=== PATIENT | male | born 1940 | race Caucasian/White ===

== ENCOUNTER 2019-07-27 05:15 | Inpatient (IN) ==
[2019-07-27] MEDS ORDERED: DUONEB (A & A) INH ONE (05:57)
[2019-07-27 06:34] LABS: URINE SOURCE CLEAN CATCH
--- NOTE | 2019-07-27 06:56 | PROVIDER DOCUMENTATION ---
This chart was entered by Jacque Peñaloza Scribe, acting as scribe for Justus Mederos DO. HPI-General Adult - General Source: patient, family (daughter) - History of Present Illness -Gen Adult Nature of Presenting Problems: 79yom presents to ED cc cough, nausea, weakness, body aches, diarrhea, frequent urination for last 2 days, right side rib tenderness and SOB since falling on Thanksgiving but hasn't seen a dr in over 30yrs. Daughter is at bedside and r eports after pt fell he just started wrapping his ribs for last 8 weeks. Pt is tearful upon exam. Location of Pain/Injury: reports: upper body (right side ribs), generalized Quality of Pain: reports: aching Severity: reports: moderate Onset/Duration: reports: 2 days ago, other (rib pain since Thanksgiving) Timing: reports: still present Context/Activities at Onset: reports: light activity Modifying Factors: worse with: breathing, coughing, movement Associated Symptoms: reports: cough, diarrhea, fatigue, fever/chills (chills), genitourinary problems (frequency), shortness of breath, weakness Similar Symptoms Previously?: No Recently seen or treated by another doctor?: No <Justus Mederos - Last Filed: 07/27/19 06:55> <Reese Luna - Last Filed: 07/27/19 10:13> - General Chief Complaint: Shortness of Breath Stated Complaint: WEAK/FLU SX Time Seen by Provider: 07/27/19 06:01 Allergies/Adverse Reactions: Patient Allergies Allergy/AdvReac Type Severity Reaction Status Date / Time No Known Allergies Allergy Verified 07/27/19 06:30 Home Medications: Home Medication List Medication Instructions Recorded Confirmed Last Taken Type NK [No Home Medications] 07/27/19 07/27/19 Unknown History Review of Systems - Adult - REVIEW OF SYSTEMS - ADULT Constitutional: reports: see HPI, chillsiris. denies: fever Eyes: reports: no symptoms reported Ears, Nose, Mouth & Throat: reports: no symptoms reported Cardiovascular: reports: no symptoms reported Respiratory: reports: see HPI, cough, shortness of breath, wheezing Gastrointestinal: reports: see HPI, diarrhea, nausea. denies: abdominal pain, vomiting Genitourinary: reports: see HPI, frequency. denies: dysuria, hematuria Musculoskeletal: reports: see HPI, other (right side rib tenderness) Integumentary: reports: no symptoms reported Neurological: reports: no symptoms reported Psychiatric: reports: no symptoms reported Endocrine: reports: no symptoms reported Hematologic/Lymphatic: reports: no symptoms reported Allergic/Immunologic: reports: no symptoms reported All Other Systems: Reviewed and Negative <Justus Mederos - Last Filed: 07/27/19 06:55> Past History - Adult - PAST MEDICAL HISTORY-ADULT Review of Records: reports: Nursing Assessment Review, Medications Reviewed, Social history reviewed & non-contributory. Major Childhood Illnesses: reports: denies history Cardiovascular: reports: denies history Respiratory: reports: denies history Gastrointestinal: reports: denies history Obstetrical/Gynecological: reports: denies history Genitourinary: reports: denies history Musculoskeletal: reports: denies history Neurological: reports: denies history Endocrine/Immune: reports: denies history Other Conditions: reports: denies history - IMMUNIZATION STATUS Childhood Immunizations: See Nurse Assessment Flu Vaccine: See Nurse Assessment - FAMILY HISTORY Family History: reviewed, not pertinent - SOCIAL HISTORY Smoking: denies <Justus Mederos - Last Filed: 07/27/19 06:55> Physical Exam-General - PHYSICAL EXAM-ADULT Initial Vital Signs Reviewed: Yes - CONSTITUTIONAL General Appearance: appears well, alert. negative: anxious, combative - EYES Eyes: PERRL/EOMI, pink conjunctivae. negative: photophobia - HEAD, EARS, NOSE, MOUTH & THROAT HENMT: normocephalic/atraumatic, moist mucous membranes, dental decay (periodontal disease throughout), TM obscurred by cerumen (bilateral). negative: angioedema - NECK Neck: supple, normal inspection - RESPIRATORY Respiratory: no respiratory distress, no accessory muscle use, decreased breath sounds, rales (right lower), wheezing (expiratory, diffuse throughout). negative: crackles, rhonchi, stridor - CARDIOVASCULAR Cardiovascular: normal peripheral pulses, no gallop, no JVD, no murmur, tachycardia. negative: bradycardia - GASTROINTESTINAL (ABDOMEN) Abdominal Exam: normal bowel sounds, non tender, soft, no organomegaly, no pulsatile mass. negative: distended, guarding, rigid, rebound - LYMPHATIC Lymphatic: no adenopathy. negative: enlargement - MUSCULOSKELETAL Back Exam: no CVA tenderness, no vertebral tenderness, other (DJD, thoracic and lumbar). negative: kyphosis Extremity: normal range of motion, normal capillary refill, swelling (pretibial, mild; calves are symetrical). negative: deformity - SKIN Integumentary: normal color, normal turgor, warm/dry. negative: diaphoresis, jaundice, rash - PSYCHIATRIC Psych/Mental Status: normal mood/affect, oriented x 3, tearful. negative: anxious <Justus Mederos - Last Filed: 07/27/19 06:55> Progress - PLAN OF CARE/RESULTS Progress/Plan/Lab Results: Vital Signs - 8 hr 07/27/19 05:33 Temperature 98.1 F Pulse Rate 126 H Respiratory Rate 20 Blood Pressure 139/73 O2 Sat by Pulse Oximetry 90 L Laboratory Results - last 24 hr 07/27/19 05:39 POC Glucose 349 H Orders Category Date Time Status Finger Stick Blood Sugar (ED) DIRECTED Care 07/27/19 05:40 Active IV Insertion ORDERED Care 07/27/19 05:57 Active CHEST-2 VIEWS [RAD] Stat Exams 07/27/19 05:57 Ordered CBC WITH ELECTRONIC DIFF [HEME] Stat Lab 07/27/19 05:56 Uncollected COMPREHENSIVE METABOLIC PANEL [CHEM] Stat Lab 07/27/19 05:57 Uncollected PRO B-NATRIURETIC PEPTIDE Stat Lab 07/27/19 05:59 Uncollected TROPONIN T HIGH SENSITIVITY Stat Lab 07/27/19 05:59 Uncollected URINALYSIS W/POSS RFLX CULT [URINALYSIS] Stat Lab 07/27/19 05:57 Uncollected Albuterol 2.5MG/Ipratrop 0.5MG [Duoneb (A & A)] Med 07/27/19 05:57 Discontinued 3 ml INH NOW ONE Aerosol Treatments Routine Oth 07/27/19 05:58 Active Aerosol Treatments Stat Oth 07/27/19 05:58 Active EKG [EKG] Stat Ther 07/27/19 05:40 Ordered Result Diagrams: 07/27/19 06:05 - EKG 1 Time of EKG reading by physician:: 06:08 EKG Read and Signed by:: Justus Mederos EKG Interpretation (*Must complete 3 of following elements*): Abnormal (possible inferior infarct, age undetermined) Rate: 123 Rhythm: Sinus Tachy QRS: normal DE Interval: normal <Justus Mederos - Last Filed: 07/27/19 06:55> - PLAN OF CARE/RESULTS Progress/Plan/Lab Results: Vital Signs - 8 hr 07/27/19 05:33 07/27/19 06:40 07/27/19 07:26 Temperature 98.1 F Pulse Rate 126 H 115 H 122 H Respiratory Rate 20 22 Blood Pressure 139/73 148/86 O2 Sat by Pulse Oximetry 90 L 92 L 93 L 07/27/19 08:16 Temperature 98.8 F Pulse Rate 122 H Respiratory Rate 20 Blood Pressure 138/77 O2 Sat by Pulse Oximetry 95 07/27/19 06:05 Influenza Screen - Final Nasopharyngeal Laboratory Results - last 24 hr 07/27/19 07/27/19 07/27/19 05:39 06:05 06:05 WBC 6.95 RBC 4.86 Hgb 14.6 Hct 41.5 L MCV 85.4 MCH 30.0 MCHC 35.2 RDW Std Deviation 13.0 Plt Count 179 MPV 10.0 Neut % (Auto) 79.2 H Lymph % (Auto) 12.7 L [place] % (Auto) 6.3 Eos % (Auto) 1.7 Baso % (Auto) 0.1 Neut # (Auto) 5.50 Lymph # (Auto) 0.88 L [place] # (Auto) 0.44 Eos # (Auto) 0.12 Baso # (Auto) 0.01 PT INR PTT (Actin FS) Sodium 136 Potassium 4.3 Chloride 98 Carbon Dioxide 23 L Anion Gap 15 BUN 14 Creatinine 0.9 Estimated GFR/1.73 m2 > 60 BUN/Creatinine Ratio 16 Glucose 373 H POC Glucose 349 H Calculated Osmolality 288 Calcium 9.5 Total Bilirubin 0.54 AST 23 ALT 28 Alkaline Phosphatase 80 Creatine Kinase Troponin T High Sens Ezj-Y-Fjknlobwsve Pept Total Protein 6.8 Albumin 3.9 Globulin 2.9 Albumin/Globulin Ratio 1.3 Plasma Lactate Urine Source Urine Color Urine Turbidity Urine pH Ur Specific [place] Urine Protein Ur Glucose (Stick) Ur Ketones (Stick) Urine Blood Urine Nitrite Urine Bilirubin Urobilinogen Dipstick Urine Leukocytes Urine WBC (Auto) Urine RBC (Auto) U Epithel Cells (Auto) Urine Bacteria (Auto) 07/27/19 07/27/19 07/27/19 06:05 06:05 06:05 WBC RBC Hgb Hct MCV MCH MCHC RDW Std Deviation Plt Count MPV Neut % (Auto) Lymph % (Auto) [place] % (Auto) Eos % (Auto) Baso % (Auto) Neut # (Auto) Lymph # (Auto) [place] # (Auto) Eos # (Auto) Baso # (Auto) PT INR PTT (Actin FS) Sodium Potassium Chloride Carbon Dioxide Anion Gap BUN Creatinine Estimated GFR/1.73 m2 BUN/Creatinine Ratio Glucose POC Glucose Calculated Osmolality Calcium Total Bilirubin AST ALT Alkaline Phosphatase Creatine Kinase Troponin T High Sens 8 Lgy-K-Baakoyfrwed Pept 92 Total Protein Albumin Globulin Albumin/Globulin Ratio Plasma Lactate 1.7 Urine Source Urine Color Urine Turbidity Urine pH Ur Specific [place] Urine Protein Ur Glucose (Stick) Ur Ketones (Stick) Urine Blood Urine Nitrite Urine Bilirubin Urobilinogen Dipstick Urine Leukocytes Urine WBC (Auto) Urine RBC (Auto) U Epithel Cells (Auto) Urine Bacteria (Auto) 07/27/19 07/27/19 07/27/19 06:05 06:05 06:25 WBC RBC Hgb Hct MCV MCH MCHC RDW Std Deviation Plt Count MPV Neut % (Auto) Lymph % (Auto) [place] % (Auto) Eos % (Auto) Baso % (Auto) Neut # (Auto) Lymph # (Auto) [place] # (Auto) Eos # (Auto) Baso # (Auto) PT 13.8 INR 1.05 PTT (Actin FS) 29.4 Sodium Potassium Chloride Carbon Dioxide Anion Gap BUN Creatinine Estimated GFR/1.73 m2 BUN/Creatinine Ratio Glucose POC Glucose Calculated Osmolality Calcium Total Bilirubin AST ALT Alkaline Phosphatase Creatine Kinase 151 Troponin T High Sens Yhx-V-Dlucggbygng Pept Total Protein Albumin Globulin Albumin/Globulin Ratio Plasma Lactate Urine Source CLEAN CATCH Urine Color YELLOW Urine Turbidity CLEAR Urine pH 5.5 Ur Specific [place] 1.040 Urine Protein NEGATIVE Ur Glucose (Stick) >1000 A Ur Ketones (Stick) 20 A Urine Blood NEGATIVE Urine Nitrite NEGATIVE Urine Bilirubin NEGATIVE Urobilinogen Dipstick NORMAL Urine Leukocytes NEGATIVE Urine WBC (Auto) <10 Urine RBC (Auto) <10 U Epithel Cells (Auto) <10 Urine Bacteria (Auto) NEGATIVE Orders Category Date Time Status Cardiac Monitoring DIRECTED Care 07/27/19 08:30 Active Finger Stick Blood Sugar (ED) DIRECTED Care 07/27/19 05:40 Completed IV Insertion ORDERED Care 07/27/19 05:57 Completed IV Insertion ORDERED Care 07/27/19 08:30 Active Notify MD of + Sepsis Screen NOW Care 07/27/19 08:30 Active Notify Physician As Ordered Care 07/27/19 08:30 Active CHEST-2 VIEWS [RAD] Stat Exams 07/27/19 05:[address] ABDOMEN/PELVIS W/O CONTRAST [CT] Stat Exams 07/27/19 08:[address] ANGIOGRM PULMONARY ARTERIES [CT] Stat Exams 07/27/19 07:19 Completed RIBS ONLY RIGHT [RAD] Stat Exams 07/27/19 06:50 Completed BLOOD CULTURE [BLDCUL] Stat Lab 07/27/19 08:30 Uncollected CBC WITH ELECTRONIC DIFF [HEME] Stat Lab 07/27/19 06:05 Completed CK PROFILE [SP CHEM] Stat Lab 07/27/19 06:05 Completed COMPREHENSIVE METABOLIC PANEL [CHEM] Stat Lab 07/27/19 06:05 Completed Flu Swab [INFLUENZA SCREEN A/B] Stat Lab 07/27/19 06:05 Completed LACTATE, PLASMA [CHEM] Lab 07/27/19 09:00 Uncollected LACTATE, PLASMA [CHEM] Lab 07/27/19 12:00 Uncollected LACTATE, PLASMA [CHEM] Stat Lab 07/27/19 06:05 Completed PRO B-NATRIURETIC PEPTIDE Stat Lab 07/27/19 06:05 Completed PROTIME WITH INR [COAG] Stat Lab 07/27/19 06:05 Completed PTT [COAG] Stat Lab 07/27/19 06:05 Completed TROPONIN T HIGH SENSITIVITY Stat Lab 07/27/19 06:05 Completed URINALYSIS W/POSS RFLX CULT [URINALYSIS] Stat Lab 07/27/19 06:25 Completed Albuterol 2.5MG/Ipratrop 0.5MG [Duoneb (A & A)] Med 07/27/19 05:57 Discontinued 3 ml INH NOW ONE Insulin Human Regular [Humulin R] Med 07/27/19 08:31 Discontinued 10 unit IV NOW ONE Levaquin 500 mg/D5w IV Now Med 07/27/19 09:10 Ordered Levofloxacin 500 mg/D5w [Levaquin 500 mg/D5w] 500 mg in 100 ml IV NOW Aerosol Treatments Routine Oth 07/27/19 05:58 Completed Aerosol Treatments Stat Oth 07/27/19 05:58 Completed Oxygen Device Stat Oth 07/27/19 08:30 Active EKG [EKG] Stat Ther 07/27/19 05:40 Draft Result Diagrams: 07/27/19 06:05 07/27/19 06:05 - CONSULTS/PCP/HOSPITALIST Notification #1 *Consult/PCP/Hospitalist*: Siobhan for Hospitalist Time Discussed: 10:00 Consult Disposition: Will see in ED, Admit <Reese Luna - Last Filed: 07/27/19 10:13> Departure - Departure Date of Disposition Decision: 07/27/19 Certified Medical Emergency: Emergent - Critical Care Note This patient required my direct & personal management of CC.: No <Justus Mederos - Last Filed: 07/27/19 06:55> - Departure Time of Disposition Decision: 09:36 Certified Medical Emergency: Emergent - Critical Care Note This patient required my direct & personal management of CC.: No <Reese Luna - Last Filed: 07/27/19 10:13> - Departure DIAGNOSIS: Diabetes mellitus, Atypical pneumonia, Renal mass Disposition: ADMITTED INPATIENT 09 Condition: Fair Additional Instructions: ED Follow Up Instructions: You have been treated by a care provider in the Emergency Department. These instructions are being provided to you so you can have an understanding of how to care for yourself upon discharge. [facility], you are responsible for making arrangements for follow-up care by a physician of your choice. Take all prescribed medications as directed. Return to the Emergency Department immediately for any new or worsening symptoms. You may call the Physician Referral phone number at [phone] to obtain a list of Physicians who are taking new patients. Referrals and Follow-Ups: None,PCP [Primary Care Provider] - Attestation - Physician/ HOWARD Attestation Patient care was provided by Advanced Practice Provider:: No The physician spent face to face time with patient:: Yes Advanced Practice Provider documentation review:: Supervising physician onsite and consulted in the evaluation and care of this patient. The physician did have a face to face encounter with the patient. <Justus Mederos - Last Filed: 07/27/19 06:55> This chart was documented by the indicated scribe, (Jacque Peñaloza, Krystle) and accurately reflects the services I performed and decisions made by , Justus Mederos DO, as attested by the provider's signature.
[2019-07-27 06:59] LABS: AGAP 15; ALB/GLOB RATIO 1.3; ALBUMIN 3.9 g/dL (3.5-5.0); ALKALINE PHOSPHATASE 80 U/L (32-122); BUN 14 mg/dL (8-22); CALCIUM 9.5 mg/dL (8.8-10.2); CHLORIDE 98 mmol/L (98-107); COSMO 288; CREATININE 0.9 mg/dL (0.7-1.2); ESTIMATED GFR > 60; GLUCOSE 373 mg/dL (70-104); GOT 23 U/L (10-34); GPT 28 U/L (10-44); POTASSIUM 4.3 mmol/L (3.5-5.1); SODIUM 136 mmol/L (136-145); TCO2 23 mmol/L (25-35); TOTAL BILIRUBIN 0.54 mg/dL (0.20-1.00); TOTAL PROTEIN 6.8 g/dL (6.3-8.3)
[2019-07-27 07:00] LABS: BASO# 0.01 X1000 (0.0-0.2); BASO% 0.1 % (0.0-0.8); EOS# 0.12 X1000 (0.0-0.7); EOS% 1.7 % (0.0-10.0); HEMATOCRIT 41.5 % (42.0-52.0); HEMOGLOBIN 14.6 g/dL (14.0-18.0); LYMPH# 0.88 X1000 (1.2-3.4); LYMPH% 12.7 % (20.5-51.1); MCHC 35.2 g/dL (33-37); MCV 85.4 FL (81-99); MONO# 0.44 X1000 (0.11-0.59); MONO% 6.3 % (1.7-9.3); NEUT% 79.2 % (42.2-75.2); PLT 179 X1000 (130-400); RBC 4.86 XMIL (4.7-6.1); WBC 6.95 X1000 (4.8-10.8)
--- NOTE | 2019-07-27 07:02 | Diag Imaging Result Doc PS360 ---
EXAM: CHEST-2 VIEWS 07/27/2019 HISTORY: cough TECHNIQUE: PA and lateral chest COMMENT: There are no previous studies. The heart size and pulmonary vascularity are within normal limits. There is an apparent nipple shadow on the left. There are some granulomata in the left upper lobe. There is peribronchial thickening present in the left lower lobe. This may represent a mild bronchopneumonia. IMPRESSION: Minimal bronchopneumonia left lower lobe. Electronically signed by Victorino Caraballo 07/27/2019 7:00 AM
[2019-07-27 07:07] LABS: BILIRUBIN URINE NEGATIVE (NEGATIVE); BLOOD URINE NEGATIVE (NEGATIVE); COLOR YELLOW; GLUCOSE URINE >1000 mg/dL (NEGATIVE); KETONE URINE 20 mg/dL (NEGATIVE); LEUKOCYTES URINE NEGATIVE (NEGATIVE); NITRITE URINE NEGATIVE (NEGATIVE); PH URINE 5.5; PROTEIN URINE NEGATIVE (NEGATIVE); TURBIDITY URINE CLEAR (CLEAR); UROBILINOGEN URINE NORMAL (NORMAL)
[2019-07-27 07:09] LABS: UR EPITHELIAL CELLS <10 /HPF (<10); URINE BACTERIA NEGATIVE /HPF; URINE RBC <10 /HPF (<10); URINE WBC <10 /HPF (<10)
--- NOTE | 2019-07-27 07:24 | Diag Imaging Result Doc PS360 ---
EXAM: RIBS ONLY RIGHT 07/27/2019 HISTORY: rib pain TECHNIQUE: Right rib series 4 views COMMENT: There is no evidence of pneumothorax or pleural fluid collection. The ribs appear to be intact. There is some deformity of the distal sixth rib which is probably chronic. IMPRESSION: No evidence of acute bony abnormality. Electronically signed by Victorino Caraballo 07/27/2019 7:21 AM
--- NOTE | 2019-07-27 07:26 | EKG Report ---
Test Performed on : 07/27/2019 06:00:13 AM Test Reason : sob Blood Pressure : / mmHG Vent. Rate : 123 BPM Atrial Rate : 123 BPM P-R Int : 128 ms QRS Dur : 088 ms QT Int : 412 ms P-R-T Axes : 055 004 056 degrees QTc Int : 589 ms Sinus tachycardia. Possible Inferior infarct , age undetermined Abnormal ECG No previous ECGs available Unconfirmed Result
--- NOTE | 2019-07-27 08:21 | Diag Imaging Result Doc PS360 ---
CT ANGIOGRM PULMONARY ARTERIES - 07/27/2019 INDICATION: sob, rule out PTE TECHNIQUE: Axial CT images were obtained after administering intravenous contrast. Coronal MIP images were generated. COMPARISON: None FINDINGS: There is a large suspicious mass at the posterior surface of the right kidney. This measures 5.3 x 6.6 cm. This is round and exophytic. This enhances heterogeneously. This does not appear to invade the renal collecting system. This does extend all the way to the fascia. This mass is incompletely imaged. Small calcified gallstone in the gallbladder. No gallbladder distention or inflammation. Moderate fatty change of the liver. There is no pulmonary embolism. There is mild calcified coronary artery disease. Heart size is normal with no pericardial effusion. There is some reticulonodular infiltrate in the left lower lobe consistent with atypical pneumonia. No significant COPD. Airways are all clear. There are moderate degenerative changes of the spine. No acute or suspicious bony lesion. IMPRESSION: 1. Large right renal mass. Noncontrast abdomen pelvis CT is recommended to complete staging. 2. Atypical pneumonia in the left lower lobe. 3. Negative for pulmonary embolism. This exam was performed using automated exposure control, adjustment of mA or kV according to patient size, and/or use of iterative reconstruction technique Electronically signed by Frandy Jules 07/27/2019 8:19 AM
[2019-07-27] MEDS ORDERED: HUMULIN R IV ONE (08:31)
[2019-07-27 08:57] LABS: INR 1.05; PROTIME 13.8 Seconds (11.0-16.0)
[2019-07-27 08:58] LABS: PTT 29.4 Seconds (22.3-41.8)
[2019-07-27] MEDS ORDERED: LEVAQUIN 500 MG/D5W 500 MG/100 ML IVPB IV ONE (09:10)
--- NOTE | 2019-07-27 09:14 | Diag Imaging Result Doc PS360 ---
CT ABDOMEN/PELVIS W/O CONTRAST - 07/27/2019 INDICATION: mass, abdo pain COMPARISON: CT chest from earlier FINDINGS: The large left renal mass is completely imaged. This measures about 5.1 x 6.5 cm in AP and lateral dimensions maximally. This is at the posterior upper-mid pole of the right kidney. This does not appear to invade the renal sinus. There is moderate diffuse dilation of the right ureter. There may be a narrowing at the distalmost right ureter. The urinary bladder demonstrates moderate wall thickening, significant reticulation and diverticula formation consistent with chronic urinary bladder hypertension. The left kidney and ureter are normal. No adenopathy. No bowel obstruction or inflammation. Normal appendix. Gallstone in the gallbladder. There are moderate degenerative changes of the spine. No acute or suspicious bony lesion. IMPRESSION: 1. Large right renal mass compatible with a renal cell cancer. 2. There appears to be a moderate stricture at the distal most right ureter reducing ureteral dilation. 3. Chronic urinary bladder hypertension. 4. Small gallstone in the gallbladder. This exam was performed using automated exposure control, adjustment of mA or kV according to patient size, and/or use of iterative reconstruction technique Electronically signed by Frandy Jules 07/27/2019 9:11 AM
[2019-07-27] MEDS ORDERED: LOPRESSOR IV ONE (10:05)
[2019-07-27] MEDS ORDERED: NS 1,000 ML IV ONE (10:11)
[2019-07-27] MEDS ORDERED: ZOFRAN IV PRN (10:16)
[2019-07-27] MEDS ORDERED: TYLENOL PO PRN (10:16)
[2019-07-27 10:29] LABS: HEMOGLOBIN A1C 12.8 % (4.8-6.0)
[2019-07-27] MEDS: ZOSYN 3.375 GM in NS 50 ML IV SCH ×3 (10:30→22:41)
[2019-07-27 10:40] LABS: FREE T4 1.19 ng/dL (0.93-1.70); TSH 1.13 uIUmL (0.27-4.20)
[2019-07-27] MEDS: HUMULIN R SUBQ SCH ×3 (11:00→20:39)
[2019-07-27 11:07] LABS: UR AMPHETAMINES QUAL NONE DETECTED (NONE DETECT); UR BARBITUATES QUAL NONE DETECTED (NONE DETECT); UR BENZODIAZEPIN QUAL NONE DETECTED (NONE DETECT); UR CANNABINOIDS QUAL NONE DETECTED (NONE DETECT); UR COCAINE QUAL NONE DETECTED (NONE DETECT); UR METHADONE QUAL NONE DETECTED (NONE DETECT); UR OPIATES QUAL NONE DETECTED (NONE DETECT); UR OXYCODONE QUAL NONE DETECTED (NONE DETECT); UR PCP QUAL NONE DETECTED (NONE DETECT)
[2019-07-27] MEDS ORDERED: SOLU-MEDROL IV SCH (11:15)
--- NOTE | 2019-07-27 11:43 | HISTORY AND PHYSICAL ---
PRIMARY CARE PROVIDER: None. He has not been to a primary care provider in over 50 years. CHIEF COMPLAINT: Right-sided pain, nocturia, and shortness of breath with wheezing. HISTORY OF PRESENT ILLNESS: Mr. Devonte Norton is an 79-year-old, male with a medical history of constipation, anxiety, and insomnia. However, he only takes a stool softener as his only medication. Mr. Norton states that he has essentially felt well for all these years. He has not been to a doctor in over 50 years. He does have complaints of some leakage with urination. He has been dealing with some urinary frequency at night. He states that last Wednesday, he started cold symptoms, start taking Mucinex but around 3 o'clock this morning, developed shortness of breath and wheezing, along with some chills. Became very weak. He called his daughter who brought him here. Here, he is found to be newly diagnosed for hypertension, diabetes, left lower lobe pneumonia, and a right kidney mass that can be consistent with cancer. He has had a cough but has been nonproductive and what does come up is clear. He states he has had some weight loss but an unknown amount. He has not changed his diet. He said one meal a day for many years. He has only noticed that his belt is a little more loose. He denies fevers. The pain that he complains about in his right-sided area, he thought was rib pain. Apparently 2 weeks ago, he missed a step and fell, started having pain in that location. He has essentially had pain in that location ever since. It is a consistent pain. It is not pain with inspiration. X-ray reveals no rib fractures, so we are going to admit him for further treatment and evaluation. PAST MEDICAL HISTORY: 1. Constipation, on a stool softener. 2. Anxiety. States at age 17, he was denied by the [employer] secondary to the anxiety. However, he has not taken anything for anxiety for all these years. 3. Insomnia. SURGICAL HISTORY: None. SOCIAL HISTORY: Denies tobacco, alcohol, or illicit drug use. Lives alone. His daughter is at the bedside. 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 FAMILY HISTORY: Mother started having heart problems in her mid 50s. Father had a rare stomach cancer. ALLERGIES: No known drug allergies. HOME MEDICATIONS: 1. Senokot once a day. 2. Recently on Mucinex. Otherwise, no home medications. REVIEW OF SYSTEMS: Fourteen point review of systems are complete and all were negative except for those mentioned above in the HPI. PHYSICAL EXAMINATION: VITAL SIGNS: Temperature 98.8 degrees, heart rate 121, respiratory rate 16, blood pressure 139/91, O2 saturation 94% on room air. GENERAL: Mr. Devonte Norton is an 79-year-old, male. He is in no acute distress. He is able to answer questions appropriately. HEENT: Atraumatic, normocephalic. Pupils equal, round, reactive to light. Extraocular movements intact. Mucous membranes are moist. NECK: Trachea midline. CARDIOVASCULAR: S1, S2. Tachycardic rate and rhythm. No rubs, gallops, murmurs. No lower extremity edema. There are +2 dorsalis and radial pulses. Negative JVD or carotid bruits. PULMONARY: Anteriorly and posteriorly, there are expiratory wheezes noted throughout. No work of breathing noted. He is tolerating room air. GI: Soft, nontender, nondistended. Positive bowel sounds x4. EXTREMITIES: Moves all extremities equally. Full range of motion. NEUROLOGIC: A and O x3. Follows commands. Sensory is intact. SKIN: Warm, dry, intact. LABORATORY DATA: White blood cells 6000, hemoglobin 14, hematocrit 41, platelet count 179,000. INR is 1.05, PTT is 29.4. Sodium 136, potassium 4.3, BUN 14, creatinine 0.9, glucose 373, hemoglobin A1c is 12.8, calcium 9.5. Bilirubin 0.54, AST 23, ALT 28. CK 151, troponin 8. ProBNP 92. Albumin is 3.9. Triglycerides 106, total cholesterol 174, LDL 109, HDL 46. Lactate x2 is 1.7 and 1.8. TSH is 1.16, free T4 is 1.19. Urinalysis greater than 1000 glucose and 20 ketones. IMAGING: Chest x-ray, bronchopneumonia, left lower lobe. Rib x-ray, no fractures. Pulmonary arteriogram, large right renal mass, atypical pneumonia in the left lower lobe. Negative for pulmonary embolism. Abdominal and pelvic CT, large right renal mass compatible with a renal cell cancer. There appears to be a moderate stricture at the distalmost right ureter producing ureteral dilation, chronic urinary bladder hypertension, small gallstones in the gallbladder. There is no mention of the prostate in this report. EKG, sinus tachycardia, rate 123, QTc 589. ASSESSMENT/PLAN: 1. Left lower lobe bronchopneumonia. Started on Zosyn. He is wheezing so we will do some nebulizers, as needed oxygen. Currently, he is on room air. We will do Xopenex since he is so tachycardic. Lactate is currently normal. 2. Newly found right renal mass along with the right ureter having a moderate stricture and urinary bladder hypertension. We consulted Dr. Norman with urology for further treatment and evaluation. Urine studies ordered. 3. Newly diagnosed diabetes mellitus type 2, which is currently uncontrolled. Hemoglobin A1c is 12.8. His glucose was over 300 here and he has been started on a diabetic diet, patterned blood glucoses, and sliding scale insulin, with a nutritional consult. 4. Newly diagnosed hypertension and he has tachycardia. He is getting some intravenous fluids. We will give him one-time dose of intravenous metoprolol and start him on 12.5 twice a day. We will also get an echocardiogram. There are no signs of pulmonary edema or lower extremity edema. 5. Anxiety. The beta cheryl may help with this as he is so tachycardic but he has got a long history of anxiety; however, untreated, so we will add some as needed Xanax if he needs it while he is here as he has had several diagnoses. He either has a fear of going to a doctor or really truly has felt good over the last 50 years. 6. Insomnia. No medications for that. 7. Chronic constipation. He has takes a stool softener every day at home which has kept this controlled. 8. Deep venous thrombosis prophylaxis. We will do sequential compression devices for now. Dictated by SHARRI Weathers for Phil Linares MD cc: SHARRI Weathers MD
[2019-07-27] MEDS ORDERED: LOPRESSOR PO ONE (14:25)
[2019-07-27] MEDS ORDERED: HUMULIN R SUBQ ONE (14:29)
[2019-07-27] MEDS: XOPENEX NEB INH SCH ×2 (15:51→23:03)
[2019-07-27] MEDS: ATROVENT NEB INH SCH ×2 (15:51→23:03)
[2019-07-27] MEDS: GLUCOTROL PO SCH (18:52)
[2019-07-27] MEDS: XANAX PO PRN (18:53)
--- NOTE | 2019-07-27 19:08 | HISTORY AND PHYSICAL ---
SUBJECTIVE: The patient has no major complaints. OBJECTIVE: Vital Signs: Blood pressure 134/80, heart rate of 96, respiratory rate of 22, temperature 98.6, 94% on 3 L. Cardiovascular: Regular rate and rhythm. Pulmonary: Bilateral breath sounds, clear to auscultation. GI: Soft, nontender, nondistended. Bowel sounds are positive. LABORATORY DATA: White count 6, hemoglobin and hematocrit 14 and 41, platelets 179. PROBLEM LIST: 1. He has pneumonia in the left lower lobe. He also has a large mass on his kidneys, which is likely a renal cell cancer. He also has some gallstones, but in any case we will treat the pneumonia with antibiotics and follow clinically. 2. Large renal mass which looks like renal cell cancer, but urology has been consulted. We will continue to follow. The patient will likely need surgery. 3. New-onset diabetes. He is still not well controlled. I would recommend metformin and glipizide, but he has had a recent CT, so we will do metformin when he is stable. DISPOSITION: Pending his clinical status. cc: Phil Linares MD
--- NOTE | 2019-07-27 19:59 | CONSULTATION ---
DATE OF CONSULTATION: 07/27/2019 ATTENDING AND REFERRING PHYSICIAN: Hospitalist. HISTORY OF PRESENT ILLNESS: This 79-year-old male has a 1-week history of increasing shortness of breath and feeling weak. He states that last week he fell, landing on his right knee and right side. He states he has had right-sided pain since then. He became very weak and fell today, and was brought to the emergency room by his daughter. The patient states he has a long history of problems voiding. He states he was having urge and urge incontinence, and bought Super TBS Prostate. That really did not help. He denies any previous urologic surgery. He has no history of kidney stones. He has had no hematuria. He states he has had some weight loss. PAST MEDICAL HISTORY: 1. Constipation. 2. Anxiety. 3. New onset diabetes. 4. Hypertension. PAST SURGICAL HISTORY: Teeth extraction. SOCIAL HISTORY: No current tobacco or alcohol use. ALLERGIES: No known drug allergies. REVIEW OF SYSTEMS: He states until last week he was doing well. He denies any problems with strokes, seizures, or bowel problems. He denies heart problems. PHYSICAL EXAMINATION: General: An obese, age apparent, normally developed, white male, oriented in all ways and cooperative. HEENT: Normal for age. Lungs: Rhonchi in both pina. No rales appreciated. Cardiovascular: Regular rate and rhythm. Abdomen: Obese, soft, nontender. No hepatosplenomegaly or masses. Normal bowel sounds. : Uncircumcised male with phimosis. Foreskin retracts. Both testes are down and palpably normal. No inguinal hernias. Rectal: Normal sphincter tone. Prostate about 70 g, smooth, and symmetric. Extremities: No clubbing, cyanosis, or edema. Neurologic: No focal deficits. LABORATORY EVALUATION: He has a white count of 6.95, hemoglobin 14.6, hematocrit 41.5, platelets are 179,000. Serum electrolytes are normal. BUN 14, creatinine 0.9. Serum glucose was 373. CT renal stone search reveals an approximate 5 cm mass in the upper pole, posterior right kidney. There is dilation of the right ureter, but no associated pyelocaliectasis. The dilation seems to go to the very distal ureter. That could be due to a stricture or enlarged prostate. The bladder does appear trabeculated, and the prostate does protrude into the bladder. The patient's pulmonary arteriogram did not reveal any embolism; however, pneumonia was noted. IMPRESSION: 1. Pneumonia with shortness of breath. 2. Diabetes. 3. Hypertension. 4. Enlarged prostate with obstructive voiding. 5. Right renal mass. 6. Dilated right ureter without dilation of the renal collecting system. RECOMMEND: 1. Start Flomax 0.4 mg a day. 2. Check PSA with the next blood draw. 3. Will need a right partial nephrectomy after pneumonia and current medical problems are stabilized. Discussed with patient and daughter that this will be in several weeks after he is stable at home. Thank you for this consultation. cc: Devonte Norman MD
[2019-07-27] MEDS: LOPRESSOR PO SCH (20:32)
[2019-07-27] MEDS: FLOMAX PO SCH (20:33)
[2019-07-27] MEDS ORDERED: LOPRESSOR PO SCH (21:00)
[2019-07-27] MEDS: SOLU-MEDROL IV SCH (22:41)
[2019-07-27] MEDS: PULMICORT INH SCH (23:03)
[2019-07-28] MEDS: XOPENEX NEB INH SCH ×4 (04:00→22:28)
[2019-07-28] MEDS: ATROVENT NEB INH SCH ×4 (04:00→22:28)
[2019-07-28] MEDS: ZOSYN 3.375 GM in NS 50 ML IV SCH ×5 (04:27→22:59)
[2019-07-28] MEDS: XANAX PO PRN ×3 (04:27→15:32)
[2019-07-28] MEDS: HUMULIN R SUBQ SCH ×3 (07:03→16:24)
[2019-07-28 07:37] LABS: BASO# 0.01 X1000 (0.0-0.2); BASO% 0.1 % (0.0-0.8); HEMATOCRIT 41.2 % (42.0-52.0); LYMPH# 1.22 X1000 (1.2-3.4); MCH 29.4 PG (27-31); MCV 86.6 FL (81-99); MONO# 0.23 X1000 (0.11-0.59); MONO% 2.6 % (1.7-9.3); MPV 9.8 FL (7.4-10.4); NEUT# 7.25 X1000 (1.4-6.5); NEUT% 83.3 % (42.2-75.2); PLT 205 X1000 (130-400); RBC 4.76 XMIL (4.7-6.1); RDW 12.8 % (11.5-14.5); WBC 8.71 X1000 (4.8-10.8)
--- NOTE | 2019-07-28 08:05 | Diag Imaging Result Doc PS360 ---
EXAM: CHEST-2 VIEWS HISTORY: pna follow up TECHNIQUE: Two views COMPARISON: 07/27/2019 FINDINGS: The lungs are well expanded. The heart is not enlarged. The vessels are not distended. There are minimal increased markings in the left lung base. No consolidation. No pleural effusions. IMPRESSION: Stable chest Electronically signed by Dontrell Dorsey 07/28/2019 8:03 AM
[2019-07-28 08:49] LABS: AGAP 17; ALBUMIN 3.5 g/dL (3.5-5.0); ALKALINE PHOSPHATASE 69 U/L (32-122); BUN 21 mg/dL (8-22); CALCIUM 9.1 mg/dL (8.8-10.2); CHLORIDE 99 mmol/L (98-107); COSMO 290; ESTIMATED GFR > 60; GLUCOSE 304 mg/dL (70-104); GOT 33 U/L (10-34); GPT 33 U/L (10-44); MAGNESIUM 2.2 mg/dL (1.5-2.7); SODIUM 138 mmol/L (136-145); TCO2 22 mmol/L (25-35); TOTAL BILIRUBIN 0.52 mg/dL (0.20-1.00)
[2019-07-28 08:50] LABS: POTASSIUM 5.2 mmol/L (3.5-5.1)
[2019-07-28] MEDS: LOPRESSOR PO SCH ×2 (09:45→21:01)
[2019-07-28] MEDS: SENOKOT PO SCH (09:46)
[2019-07-28] MEDS: GLUCOTROL PO SCH (09:46)
[2019-07-28] MEDS: SOLU-MEDROL IV SCH (10:23)
[2019-07-28] MEDS: PULMICORT INH SCH ×2 (10:56→22:28)
[2019-07-28] MEDS: LANTUS INSULIN SUBQ SCH (11:37)
--- NOTE | 2019-07-28 15:04 | ECHO REPORT ---
ORDER DATE: 07/27/2019 MEASUREMENTS: Septal thickness 1.1, left ventricular internal diameter in diastole 4.9, posterior wall thickness 1.1, left ventricular internal diameter in systole 3.7, aortic root 3.0, left atrium 4.1. SUMMARY: 1. Technically difficult study due to limited acoustic window quality. 2. Very mild sclerosis of trileaflet aortic valve demonstrated with normal aortic valve opening evident. Peak gradient across aortic valve is 15 mmHg. Mitral and tricuspid valves are without evidence of structural abnormality while pulmonic valve was not well demonstrated. There is mild mitral regurgitation. The aortic root is normal in size. 3. Normal left ventricular chamber size with upper normal wall thickness demonstrated. Estimated left ejection fraction appears to be at least 55%. No regional wall abnormality is evident. Left atrium is borderline enlarged. Right atrium and right ventricle normal size with grossly preserved right ventricular systolic function. 4. No pericardial effusion. 5. Appearance of inferior vena cava suggests normal central venous pressure. cc: MD Siobhan Tee CRNP
--- NOTE | 2019-07-28 18:02 | PROGRESS NOTE ---
DATE: 07/28/2019 SUBJECTIVE: Patient has no major complaints. He seems to be still weak but doing okay. OBJECTIVE: Vital signs: Blood pressure 126/65, heart rate of 93, respiratory rate 16, temperature 98.9 degrees. Cardiovascular: Regular rate and rhythm. Pulmonary: Bilateral breath sounds. Occasional rhonchi and wheezing. Gastrointestinal: Soft, nontender, nondistended. Bowel sounds are positive. LABORATORY DATA: White count 8, hemoglobin and hematocrit 14 and 41, platelets 205,000 potassium 5.2. Sugars are still in the 300 range, but he is on corticosteroids. PROBLEM LIST: 1. Left lower lobe pneumonia. We will continue empiric antibiotics. Continue treatment and follow. 2. Uncontrolled diabetes. He is on glipizide. I have added Lantus today. Continue sliding scale insulin and follow. I am going to stop his steroids, and we will see how he is doing. 3. A renal mass which is most likely a renal cell cancer. Plan will be outpatient elective nephrectomy or partial nephrectomy per Dr. Norman. 4. Benign prostatic hypertrophy. He is on Flomax, and I think seems to be doing a little bit better. DISPOSITION: Home when sugars have been improved hopefully in next couple of days. cc: Phil Linares MD
[2019-07-28] MEDS ORDERED: HUMULIN R IV ONE (18:51)
[2019-07-28] MEDS: FLOMAX PO SCH (21:01)
[2019-07-28] MEDS: HUMALOG SUBQ SCH (21:42)
[2019-07-29] MEDS: XOPENEX NEB INH SCH ×4 (03:45→22:25)
[2019-07-29] MEDS: ATROVENT NEB INH SCH ×4 (03:45→22:26)
[2019-07-29] MEDS: ZOSYN 3.375 GM in NS 50 ML IV SCH ×4 (04:31→21:34)
[2019-07-29] MEDS: HUMALOG SUBQ SCH ×4 (06:21→22:27)
[2019-07-29 07:24] LABS: BASO# 0.02 X1000 (0.0-0.2); BASO% 0.3 % (0.0-0.8); EOS# 0.06 X1000 (0.0-0.7); EOS% 0.8 % (0.0-10.0); HEMATOCRIT 38.7 % (42.0-52.0); IMM GRAN# 0.02 X1000 (0.0-0.04); IMM GRAN% 0.3 % (0.0-0.5); LYMPH# 1.68 X1000 (1.2-3.4); LYMPH% 22.4 % (20.5-51.1); MCH 29.3 PG (27-31); MCHC 33.6 g/dL (33-37); MCV 87.4 FL (81-99); MPV 9.9 FL (7.4-10.4); NEUT# 5.41 X1000 (1.4-6.5); NEUT% 72.2 % (42.2-75.2); PLT 202 X1000 (130-400); RBC 4.43 XMIL (4.7-6.1); RDW 12.8 % (11.5-14.5); WBC 7.49 X1000 (4.8-10.8)
[2019-07-29 08:25] LABS: AGAP 10; ALBUMIN 3.3 g/dL (3.5-5.0); ALKALINE PHOSPHATASE 65 U/L (32-122); BUN 21 mg/dL (8-22); CALCIUM 8.8 mg/dL (8.8-10.2); CHLORIDE 102 mmol/L (98-107); COSMO 286; ESTIMATED GFR > 60; GLUCOSE 172 mg/dL (70-104); GOT 26 U/L (10-34); GPT 31 U/L (10-44); MAGNESIUM 2.3 mg/dL (1.5-2.7); POTASSIUM 3.8 mmol/L (3.5-5.1); SODIUM 140 mmol/L (136-145); TCO2 28 mmol/L (25-35); TOTAL BILIRUBIN 0.56 mg/dL (0.20-1.00); TOTAL PROTEIN 6.5 g/dL (6.3-8.3)
[2019-07-29] MEDS: GLUCOTROL PO SCH (08:27)
[2019-07-29] MEDS: LOPRESSOR PO SCH ×2 (08:27→21:34)
[2019-07-29] MEDS: LANTUS INSULIN SUBQ SCH (08:28)
[2019-07-29] MEDS: SENOKOT PO SCH (08:28)
[2019-07-29] MEDS: PULMICORT INH SCH ×2 (10:22→22:26)
[2019-07-29] MEDS: XANAX PO PRN (12:21)
--- NOTE | 2019-07-29 18:12 | PROGRESS NOTE ---
DATE: 07/29/2019 SUBJECTIVE: He seems a little stronger. OBJECTIVE: vital signs: Blood pressure 122/59, heart rate 95, respiratory rate of 16, temperature 98 degrees, and 95% on room air. Cardiovascular: Regular rate and rhythm. Pulmonary: Bilateral breath sounds diminished at the bases. No rales. Gastrointestinal: Soft, nontender, nondistended. Bowel sounds are positive. LABORATORY DATA: White count 7, hemoglobin and hematocrit 13 and 38, platelets 202,000. Basic looked okay. PROBLEM LIST: 1. Uncontrolled new-onset diabetes is improved. He is on Lantus and glipizide, and I think I am going to leave him on that for now. 2. Left lower lobe pneumonia. White count is down. Continue antibiotics and pulmonary toilet. 3. Renal mass which is most suspicious for renal cell cancer. Plan is to follow up with Dr. Norman outpatient for nephrectomy or partial nephrectomy. 4. Benign prostatic hypertrophy. He seems to be doing okay on the Flomax. 5. Cholelithiasis, stable. He needs to start getting up, ambulating, and we need to work on trying to get him home if we can in the next day or so. cc: Phil Linares MD
[2019-07-29] MEDS: FLOMAX PO SCH (21:34)
[2019-07-30] MEDS: XOPENEX NEB INH SCH ×5 (03:39→23:22)
[2019-07-30] MEDS: ATROVENT NEB INH SCH ×5 (03:39→23:22)
[2019-07-30] MEDS: ZOSYN 3.375 GM in NS 50 ML IV SCH ×4 (04:36→21:46)
[2019-07-30] MEDS: HUMALOG SUBQ SCH ×4 (06:44→22:42)
[2019-07-30 07:43] LABS: BASO# 0.02 X1000 (0.0-0.2); BASO% 0.4 % (0.0-0.8); EOS# 0.13 X1000 (0.0-0.7); EOS% 2.9 % (0.0-10.0); HEMATOCRIT 38.1 % (42.0-52.0); HEMOGLOBIN 12.8 g/dL (14.0-18.0); IMM GRAN# 0.02 X1000 (0.0-0.04); IMM GRAN% 0.4 % (0.0-0.5); LYMPH# 1.59 X1000 (1.2-3.4); LYMPH% 35.2 % (20.5-51.1); MCH 29.7 PG (27-31); MCHC 33.6 g/dL (33-37); MCV 88.4 FL (81-99); MONO# 0.32 X1000 (0.11-0.59); MONO% 7.1 % (1.7-9.3); MPV 9.7 FL (7.4-10.4); NEUT# 2.44 X1000 (1.4-6.5); PLT 210 X1000 (130-400); RBC 4.31 XMIL (4.7-6.1); RDW 12.9 % (11.5-14.5); WBC 4.52 X1000 (4.8-10.8)
[2019-07-30 08:04] LABS: AGAP 10; ALB/GLOB RATIO 1.1; ALBUMIN 3.2 g/dL (3.5-5.0); ALKALINE PHOSPHATASE 55 U/L (32-122); BUN 15 mg/dL (8-22); CALCIUM 8.6 mg/dL (8.8-10.2); CHLORIDE 104 mmol/L (98-107); COSMO 288; ESTIMATED GFR > 60; GLUCOSE 204 mg/dL (70-104); GOT 29 U/L (10-34); GPT 36 U/L (10-44); MAGNESIUM 1.9 mg/dL (1.5-2.7); POTASSIUM 4.1 mmol/L (3.5-5.1); SODIUM 141 mmol/L (136-145); TCO2 27 mmol/L (25-35); TOTAL BILIRUBIN 0.52 mg/dL (0.20-1.00)
[2019-07-30] MEDS: GLUCOTROL PO SCH (09:46)
[2019-07-30] MEDS: SENOKOT PO SCH ×2 (09:46→09:48)
[2019-07-30] MEDS: LOPRESSOR PO SCH ×2 (09:46→21:46)
[2019-07-30] MEDS: XANAX PO PRN ×3 (09:46→22:20)
[2019-07-30] MEDS: LANTUS INSULIN SUBQ SCH (09:49)
[2019-07-30] MEDS: PULMICORT INH SCH ×2 (10:23→18:56)
[2019-07-30] MEDS: FLOMAX PO SCH (21:45)
[2019-07-31] MEDS: ATROVENT NEB INH SCH ×4 (03:06→22:52)
[2019-07-31] MEDS: XOPENEX NEB INH SCH ×4 (03:06→22:52)
[2019-07-31] MEDS: ZOSYN 3.375 GM in NS 50 ML IV SCH ×4 (04:12→20:53)
[2019-07-31] MEDS: HUMALOG SUBQ SCH ×4 (06:31→21:54)
[2019-07-31] MEDS: LOPRESSOR PO SCH ×2 (08:04→20:53)
[2019-07-31] MEDS: SENOKOT PO SCH (08:04)
[2019-07-31] MEDS: GLUCOTROL PO SCH (08:04)
[2019-07-31] MEDS: LANTUS INSULIN SUBQ SCH (08:04)
[2019-07-31 09:14] LABS: AGAP 10; ALBUMIN 3.1 g/dL (3.5-5.0); ALKALINE PHOSPHATASE 53 U/L (32-122); BUN 10 mg/dL (8-22); CALCIUM 9.1 mg/dL (8.8-10.2); CHLORIDE 104 mmol/L (98-107); COSMO 284; ESTIMATED GFR > 60; GLUCOSE 174 mg/dL (70-104); GOT 35 U/L (10-34); GPT 46 U/L (10-44); SODIUM 141 mmol/L (136-145); TCO2 27 mmol/L (25-35); TOTAL BILIRUBIN 0.48 mg/dL (0.20-1.00); TOTAL PROTEIN 6.1 g/dL (6.3-8.3)
[2019-07-31] MEDS: XANAX PO PRN ×2 (10:53→21:54)
[2019-07-31] MEDS: PULMICORT INH SCH ×2 (11:18→22:52)
[2019-07-31 12:00] LABS: BASO# 0.01 X1000 (0.0-0.2); BASO% 0.2 % (0.0-0.8); EOS# 0.21 X1000 (0.0-0.7); HEMATOCRIT 38.3 % (42.0-52.0); HEMOGLOBIN 12.8 g/dL (14.0-18.0); LYMPH# 1.31 X1000 (1.2-3.4); LYMPH% 24.8 % (20.5-51.1); MCH 29.9 PG (27-31); MCHC 33.4 g/dL (33-37); MCV 89.5 FL (81-99); MONO# 0.35 X1000 (0.11-0.59); MONO% 6.6 % (1.7-9.3); MPV 9.5 FL (7.4-10.4); NEUT# 3.41 X1000 (1.4-6.5); NEUT% 64.4 % (42.2-75.2); PLT 204 X1000 (130-400); RBC 4.28 XMIL (4.7-6.1); WBC 5.29 X1000 (4.8-10.8)
--- NOTE | 2019-07-31 18:37 | PROGRESS NOTE ---
DATE: 07/31/2019 SUBJECTIVE: Patient has no complaints. OBJECTIVE: Vital signs: Blood pressure 122/70, heart rate of 91, respiratory rate of 16, temperature 97.9 degrees, 94%. Cardiovascular: Regular rate and rhythm. Pulmonary: Bilateral breath sounds. Clear to auscultation. GI: Soft, nontender, nondistended. Bowel sounds are positive. LABORATORY DATA: White count 5, hemoglobin and hematocrit 12 and 38, platelets 204,000. Basic was normal. PROBLEM LIST: 1. Diabetes. His blood sugars are overall improved. He will be discharged on Lantus and glipizide. 2. Left lower lobe pneumonia. White count has normalized. The only thing is he has a persistent O2 requirement, so we are going to need to evaluate that a bit better. 3. Renal mass. He is going to be followed up by Urology for resection once he is stabilized. Anticipate discharge tomorrow. cc: Phil Linares MD
[2019-07-31] MEDS: FLOMAX PO SCH (20:53)
[2019-08-01] MEDS: XOPENEX NEB INH SCH ×2 (03:38→10:24)
[2019-08-01] MEDS: ATROVENT NEB INH SCH ×2 (03:38→10:24)
[2019-08-01] MEDS: ZOSYN 3.375 GM in NS 50 ML IV SCH ×3 (04:29→10:39)
[2019-08-01] MEDS: HUMALOG SUBQ SCH ×2 (06:59→11:13)
[2019-08-01 07:17] LABS: BASO# 0.01 X1000 (0.0-0.2); BASO% 0.2 % (0.0-0.8); EOS% 5.3 % (0.0-10.0); HEMATOCRIT 38.9 % (42.0-52.0); HEMOGLOBIN 12.9 g/dL (14.0-18.0); IMM GRAN# 0.07 X1000 (0.0-0.04); IMM GRAN% 1.2 % (0.0-0.5); LYMPH% 22.8 % (20.5-51.1); MCH 29.4 PG (27-31); MCHC 33.2 g/dL (33-37); MCV 88.6 FL (81-99); MONO# 0.41 X1000 (0.11-0.59); MONO% 7.2 % (1.7-9.3); MPV 9.5 FL (7.4-10.4); NEUT# 3.61 X1000 (1.4-6.5); NEUT% 63.3 % (42.2-75.2); PLT 206 X1000 (130-400); RBC 4.39 XMIL (4.7-6.1); RDW 12.7 % (11.5-14.5)
[2019-08-01 07:51] LABS: AGAP 10; ALB/GLOB RATIO 1.3; ALBUMIN 3.4 g/dL (3.5-5.0); ALKALINE PHOSPHATASE 52 U/L (32-122); BUN 10 mg/dL (8-22); CALCIUM 8.6 mg/dL (8.8-10.2); CHLORIDE 102 mmol/L (98-107); COSMO 278; ESTIMATED GFR > 60; GLUCOSE 188 mg/dL (70-104); GOT 24 U/L (10-34); GPT 39 U/L (10-44); MAGNESIUM 1.8 mg/dL (1.5-2.7); POTASSIUM 3.9 mmol/L (3.5-5.1); SODIUM 137 mmol/L (136-145); TCO2 25 mmol/L (25-35); TOTAL BILIRUBIN 0.59 mg/dL (0.20-1.00)
[2019-08-01] MEDS: LOPRESSOR PO SCH ×2 (07:58→11:12)
[2019-08-01] MEDS: GLUCOTROL PO SCH (07:58)
[2019-08-01] MEDS: LANTUS INSULIN SUBQ SCH (07:58)
[2019-08-01] MEDS: SENOKOT PO SCH ×2 (07:58→11:12)
[2019-08-01] MEDS: PULMICORT INH SCH (10:24)
[2019-08-01] MEDS ORDERED: NS 500 ML ONE (11:00)
[2019-08-01 11:25] VITALS: BP 130/68
[2019-08-01] MEDS ORDERED: SODIUM CHLORIDE 0.9% 10 ML ONE (12:50)
[2019-08-01] MEDS: XANAX PO PRN (13:09)
--- NOTE | 2019-08-01 21:42 | DISCHARGE SUMMARY ---
ADMISSION DATE: 07/27/2019 DISCHARGE DATE: 08/01/2019 DISCHARGE DIAGNOSIS: 1. Pneumonia. 2. Hypoxic respiratory failure. 3. Renal mass with concern over renal cell carcinoma. 4. New onset type 2 diabetes. CONSULTATIONS: Dr. Norman. Briefly, this is an 79-year-old male who came in short of breath. He was found to have pneumonia, but also hyperglycemic because sugar was 373. He was also found to have a large right renal mass with a stricture of his ureter. A1c was 12.8. He is hypertensive, anxiety, chronic constipation. I do not think he had seen a doctor in reportedly 50 years. He has not been getting regular health maintenance. He did describe symptoms of BPH for which he was placed on Flomax. In any case, he was admitted. He was placed on insulin and glipizide and improved. Dr. Norman was consulted, recommended optimizing his medical care and in a few weeks he would be set up for a partial or full nephrectomy. Echo was obtained which showed an EF of 55%. There was no wall motion abnormality. His sugars improved. Chest x-ray also improved. He still had a persistent oxygen requirement, but sugars on average have been below 200, 132, 173, and 164, and that is on Lantus with regular insulin and glipizide and metoprolol. On the day of discharge he seems to be doing okay, but he still had an O2 requirement, so we are evaluating for home oxygen which he may qualify for. Other than that, he will be discharged on insulin. Oral medications as follows: glargine insulin 25 units daily, metoprolol we will do 25 mg XL daily, Flomax 0.4 mg daily, and will do lispro insulin probably 8 units t.i.d. with meals. He will need to follow up with new primary care and he will need to follow up with Dr. Norman in a week to 2 weeks to set up his nephrectomy. 1. At this point, I think his sugars are stable enough for surgery. 2. I think his O2 requirements, which will need to be re-evaluated prior to surgery but he had normal echo, and I think if that stabilizes, he should be ready for surgery in a couple weeks. This is an unattached patient. Refer this to Dr. Norman. 35 minute discharge. cc: Phil Linares MD
== END 2019-08-01 14:40 | disposition home or self-care (01) | DRG 193 ==
LOC: ED 05:15 → EDIPHOLD 10:34 → 4N 17:15
PROVIDERS: ATTEND Internal Medicine